=== PATIENT | female | born 1985 | race American Indian/Alaskan Native ===

== ENCOUNTER 2016-12-19 10:12 | Emergency (ER) | payer MEDICAID ==
[2016-12-19 10:21] VITALS: RESP 18; BMI 27.7
[2016-12-19] MEDS ORDERED: Sodium Chloride 0.9% 1,000 ML IV ONE (10:33)
--- NOTE | 2016-12-19 11:08 | C.PDOC ---
History Of Present Illness 31 y/o female, with PMHx of HTN, and hernia surgery, presents to the ED for evaluation of nausea and abdominal pain. Patient states she had sore throat few weeks ago and is taking antibiotics for it. Pt complains of lower abdominal pain. Pt is also concerned for having unprotected sex last night. Otherwise, denies any vomiting, diarrhea, urinary symptoms, or fever. LMP:12/12/16. Time Seen by Provider: 12/19/16 10:26 Chief Complaint (Nursing): Abdominal Pain History Per: Patient History/Exam Limitations: no limitations Onset/Duration Of Symptoms: Days Current Symptoms Are (Timing): Still Present Location Of Pain/Discomfort: Suprapubic Radiation Of Pain To:: None Quality Of Discomfort: "Pain" Associated Symptoms: Nausea. denies: Fever, Chills, Diarrhea, Loss Of Appetite , Back Pain, Chest Pain, Constipation, Urinary Symptoms Exacerbating Factors: None Alleviating Factors: None Recent travel outside of the [place]: No Additional History Per: Patient Abnormal Vaginal Bleeding: No Last Menstral Period: 12/12/16 Past Medical History Reviewed: Historical Data, Nursing Documentation, Vital Signs Vital Signs: Last Vital Signs Temp 98.3 F 12/19/16 12:03 Pulse 67 12/19/16 12:03 Resp 18 12/19/16 12:03 BP 171/102 H 12/19/16 12:03 Pulse Ox 99 12/19/16 12:03 - Medical History PMH: Asthma (recently dx), HTN (eclampsia.), Migraine Denies: Anxiety, Depression, Diabetes, Hepatitis, HIV, Chronic Kidney Disease , Seizures, Sexually Transmitted Disease - [facility] Procedures INJECT/INFUSE ELECTROLYT (01/24/15) INJECT/INFUSE NEC (04/07/14) MANUAL ASSIST DELIV NEC (07/28/13) VENOUS PUNCTURE NEC (09/22/14) Family History: States: Unknown Family Hx - Social History Hx Tobacco Use: Yes ("few cigarettes daily") Hx Alcohol Use: Yes Hx Substance Use: No - Immunization History Hx Tetanus Toxoid Vaccination: No Hx Influenza Vaccination: No Hx Pneumococcal Vaccination: No Review Of Systems Except As Marked, All Systems Reviewed And Found Negative. Constitutional: Negative for: Fever, Chills Gastrointestinal: Positive for: Nausea, Abdominal Pain. Negative for: Vomiting , Diarrhea, Constipation Genitourinary: Negative for: Dysuria, Frequency, Hematuria, Vaginal Discharge, Vaginal Bleeding Musculoskeletal: Negative for: Back Pain Skin: Negative for: Rash Physical Exam - Physical Exam Appears: Non-toxic, No Acute Distress Skin: Normal Color, Warm, Dry Head: Atraumatic, Normacephalic Oral Mucosa: Moist Neck: Normal ROM, Supple Cardiovascular: Rhythm Regular, No Murmur Respiratory: Normal Breath Sounds, No Accessory Muscle Use, No Rales, No Rhonchi , No Wheezing Gastrointestinal/Abdominal: Soft, Tenderness (mild suprapubic), No Distention, No Guarding, No Rebound Back: Normal Inspection Pelvic: Normal Bimanual Exam, No Vaginal Bleeding, No Vaginal Discharge, No Cervical Motion Tenderness, No Enlarged Uterus, No Tender Uterus Extremity: Normal ROM Neurological/Psych: Oriented x3, Normal Speech Gait: Steady ED Course And Treatment - Laboratory Results Result Diagrams: 12/19/16 11:02 12/19/16 11:02 Lab Interpretation: Normal Urine POC: Negative O2 Sat by Pulse Oximetry: 99 (RA) Pulse Ox Interpretation: Normal Progress Note: Plan: blood work, urinalysis, chlamydia/GC. Patient was given IV fluids. Denies any cheat pain, headache or dizziness. On re-evaluation feeling better in no distress Medical Decision Making Medical Decision Making: Patient reports she has history of HTN but currently not on any medications Patient advised to follow up with PMD for further evaluation Disposition Counseled Patient/Family Regarding: Studies Performed, Diagnosis, Need For Followup - Disposition Referrals: [facility] [Outside] [facility] [Outside] Disposition: HOME/ ROUTINE Disposition Time: 12:00 Condition: STABLE Additional Instructions: Follow up with PMD or clinic for further evaluation Instructions: Abdominal Pain (ED) Forms: [employer] ([place]), School Excuse - POA Present On Arrival: None - Clinical Impression Clinical Impression: Abdominal pain - PA / [employer] / Resident Statement MD/DO has reviewed & agrees with the documentation as recorded. - Scribe Statement The provider has reviewed the documentation as recorded by the Patsy Llamas All medical record entries made by the Scribe were at my direction and personally dictated by me. I have reviewed the chart and agree that the record accurately reflects my personal performance of the history, physical exam, medical decision making, and the department course for this patient. I have also personally directed, reviewed, and agree with the discharge instructions and disposition.
[2016-12-19 11:19] LABS: BASO % 0.7 % (0.0-2.0); EOS # 0.1 K/uL (0.0-0.7); HEMATOCRIT 34.8 % (34.0-47.0); LYMPH # 1.1 K/uL (1.0-4.3); LYMPH % 20.4 % (20.0-40.0); MEAN CORPUSCULAR HEMOGLOBIN 27.8 pg (27.0-31.0); MEAN CORPUSCULAR HGB CONC 33.8 g/dL (33.0-37.0); MONO # 0.3 K/uL (0.0-0.8); MONO % 5.6 % (0.0-10.0); NRBC % 0.1 % (0.0-2.0); RED CELL DISTRIBUTION WIDTH 13.9 % (11.5-14.5); WHITE BLOOD COUNT 5.5 K/uL (4.8-10.8)
[2016-12-19 11:21] LABS: CHLORIDE 99 mmol/L (98-107); MEAN CELL VOLUME 82.3 fL (81.0-99.0)
[2016-12-19 11:22] LABS: SODIUM 141 mmol/L (132-148)
[2016-12-19 11:23] LABS: POTASSIUM 3.4 mmol/L (3.6-5.2)
[2016-12-19 11:25] LABS: ALB/GLOB RATIO 1.1 (1.0-2.1); ALKALINE PHOSPHATASE 77 U/L (38-126); ALT/SGPT 20 U/L (9-52); AST/SGOT 25 U/L (14-36); BILIRUBIN,TOTAL 0.5 mg/dL (0.2-1.3); BLOOD UREA NITROGEN 7 mg/dL (7-17); CARBON DIOXIDE 28 mmol/L (22-30); GFR AFRICAN-AMERICAN > 60; GLUCOSE,RANDOM 102 mg/dL (65-105); TOTAL PROTEIN 7.5 g/dL (6.3-8.3)
[2016-12-19 11:30] LABS: RBC URINE < 1 /hpf (0-3); URINE BILIRUBIN NEGATIVE (NEGATIVE); URINE BLOOD NEGATIVE (NEGATIVE); URINE COLOR Yellow (YELLOW); URINE GLUCOSE (UA) NORMAL (Normal); URINE KETONE NEGATIVE (NEGATIVE); URINE LEUKOCYTE ESTERASE NEG Leu/uL (Negative); URINE PROTEIN NEGATIVE (NEGATIVE); URINE UROBILINOGEN NORMAL mg/dL (0.2-1.0); WBC URINE 1 /hpf (0-5)
[2016-12-19 11:46] VITALS: O2SAT 99
[2016-12-19 12:04] VITALS: BP 171/102; PULSE 67; TEMP 98.3
== END 2016-12-19 12:10 | disposition home or self-care (01) ==
LOC: C.ER 10:12
DX: R10.9 Unspecified abdominal pain (principal); I10 Essential (primary) hypertension; Z72.0 Tobacco use
CPT/HCPCS: 80053; 81001; 83690; 84703; 85025; 87491; 87591; 96360; 99284; J7040